=== PATIENT | female | born 1980 | race Caucasian/White ===

== ENCOUNTER 2016-10-09 11:16 | Emergency (ER) | payer MEDICAID ==
[~2016-10-09] VITALS: Ht 160 cm; Wt 95.5 kg
[~2016-10-09 11:16] MED LIST: CEPH-443 PO; FLUO10TA PO; FLUO20CA38 PO; TRAM50TA2 PO; keflex
[2016-10-09 11:21] VITALS: Ht 160 cm; Wt 95.5 kg
[2016-10-09] MEDS ORDERED: KETOROLAC 30 MG INJ IM STA (12:28)
[2016-10-09] MEDS ORDERED: NAPR-260 PO (12:45)
[2016-10-09] MEDS ORDERED: TRAM50TA2 PO (12:45)
[2016-10-09] MEDS ORDERED: CYCL-319 PO (12:45)
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
== END 2016-10-09 12:55 | disposition home or self-care (01) ==
LOC: FTE 11:16
DX: M54.2 Cervicalgia (principal); F17.210 Nicotine dependence, cigarettes, uncomplicated
CPT/HCPCS: 96372; J1885; Z7502

== ENCOUNTER 2017-06-09 13:17 | Emergency (ER) | payer MEDICAID, OTHER ==
[~2017-06-09] VITALS: Ht 160 cm; Wt 96.4 kg
[~2017-06-09 13:17] MED LIST changes: +CYCL-319 PO; +NAPR-260 PO
[2017-06-09 13:20] VITALS: Ht 160 cm; Wt 96.4 kg
[2017-06-09] MEDS ORDERED: ALBUTEROL 0.083% (NEB) 2.5 MG/3 ML AMP HHN STA (14:06)
[2017-06-09] MEDS ORDERED: DEXAMETHASONE 10 MG/ML 1 ML INJ IM ONE (14:30)
[2017-06-09] MEDS ORDERED: IPRATROPIUM (NEB) 0.5 MG/2.5 ML AMP HHN ONE (14:30)
--- NOTE | 2017-06-09 14:50 | RADRPT ---
PROCEDURE: XR Chest CLINICAL INDICATION: Cough TECHNIQUE: PA radiograph COMPARISON: Portable chest radiograph 10/05/2013 FINDINGS: The cardiac silhouette, mediastinum, and pulmonary jamal are unremarkable. Pulmonary vasculature is within normal limits. The visualized pleural surfaces are unremarkable. Left upper lobe micronodule which may be calcifie d is stable in size. The lung parenchyma is otherwise unremarkable. IMPRESSION: Given the differences in the imaging techniques, no significant interval changes are seen including left upper lobe micronodule may be calcified (possible calcified granuloma); it most likely is benig n given its stability in size. RPTAT: TT Physician Parveen Date Time Electronically viewed and signed by Lb Lovelace Physician on 06/09/2017 14:49 JS/
[2017-06-09] MEDS ORDERED: KETOROLAC 60 MG INJ IM STA (15:07)
[2017-06-09] MEDS ORDERED: AMOX500C2 PO (15:11)
[2017-06-09] MEDS ORDERED: OFLO5DRO7 BOTH EARS (15:11)
[2017-06-09] MEDS ORDERED: IBUP-1542 PO (15:12)
--- NOTE | 2017-06-09 17:25 | ERD ---
ER Documentation Chief Complaint Chief Complaint bilateral ear pain and chronic cough HPI 6-year-old female patient with a past medical history of depression presents to the ED complaining of bilateral ear pain that started 1 week ago. States that she has been using hydrogen peroxide to clean her bilateral ears with Q-tips. States that touching the outside of her ears is painful. States that she also has a chronic cough. Reports that she follows up with a supervisor lens generating for her symptoms. Denies any chest pain, shortness of breath, dyspnea on exertion, orthopnea, fever, chills, nausea, vomiting, diarrhea, abdominal pain. ROS All systems reviewed and are negative except as per history of present illness. Medications Home Meds Active Scripts Ibuprofen* (Motrin*) 600 Mg Tab, 600 MG PO Q6, #30 TAB Prov:TANIA BAE PA-C 06/09/17 Ofloxacin Otic (Ofloxacin Otic) 5 Ml Drops, 5 DROP BOTH EARS BID for 10 Days, # 1 BOTTLE Prov:TANIA BAE PA-C 06/09/17 Amoxicillin* (Amoxicillin*) 500 Mg Cap, 500 MG PO TID for 10 Days, CAP Prov:TANIA BAE PA-C 06/09/17 Cyclobenzaprine Hcl* (Cyclobenzaprine Hcl*) 10 Mg Tablet, 10 MG PO TID, #5 TAB Prov:ANNIA DOMINGUEZ PA-C 10/09/16 Naproxen* (Naprosyn*) 500 Mg Tablet, 500 MG PO BID Y for PAIN AND/OR INFLAMMATION, #30 TAB Prov:ANNIA DOMINGUEZ PA-C 10/09/16 Tramadol HCl (Tramadol HCl) 50 Mg Tablet, 50 MG PO Q4 Y for PAIN, #20 TAB Prov:ANNIA DOMINGUEZ PA-C 10/09/16 Tramadol HCl (Tramadol HCl) 50 Mg Tablet, 50 MG PO Q4 Y for PAIN, #15 TAB Prov:KATIE RAY PA-C 02/24/16 Cephalexin* (Keflex*) 500 Mg Capsule, 500 MG PO QID for 7 Days, CAP Prov:KATIE RAY PA-C 02/24/16 Reported Medications [keflex] No Conflict Check 12/31/12 Fluoxetine Hcl* (Prozac*) 10 Mg Tablet, 20 PO DAILY 12/31/12 Fluoxetine Hcl* (Prozac*) 20 Mg Capsule, 20 MG PO DAILY 05/03/12 Allergies Allergies: Coded Allergies: acetaminophen (Verified Allergy, Mild, 12/31/12) codeine (Verified Allergy, Mild, 12/31/12) hydrocodone (Verified Allergy, Mild, 12/31/12) PMhx/Soc History of Surgery: Yes (left ovary adenocarcinoma removed,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 In no acute distress. Head: Atraumatic, normocephalic Eyes: Normal Conjunctiva without injection. No purulent discharge. PERRL. EOMI ENT: Normal external ear. Left ear canal without erythema. Left tympanic membrane pearly jacques without effusion or bulging. Erythema noted in the right ear canal with decreased light reflex of the tympanic membrane. Tenderness to palpation of the bilateral tragus. No tenderness to palpation of the bilateral mastoid. Nasal canal clear with normal turbinates. Moist oropharynx without tonsillar exudates. Non-erythematous pharynx. Uvula midline. No drooling. No trismus. Neck: Full range of motion. No meningismus. No cervical lymphadenopathy. Resp: Clear to auscultation bilaterally. No wheezing, rhonchi, rales, or crackles. No accessory muscle use. No retractions. Cardio: Regular rate and rhythm. No murmurs, rubs or gallops. Abd: Soft, non tender, non distended. Normal bowel sounds. No palpable masses. No rebound tenderness. No guarding. Skin: No petechiae or rashes Back: No midline tenderness. No CVA tenderness. Ext: No cyanosis, or edema. Neur: Awake and alert. Psych: Normal Mood and Affect Results 24 hrs Current Medications Medications (Trade) Dose Ordered Sig/Tori Route PRN Reason Start Time Stop Time Status Last Admin Dose Admin Dexamethasone (Decadron) 10 mg ONCE ONCE IM 06/09/17 14:30 06/09/17 14:31 DC 06/09/17 14:31 Albuterol (Proventil 0.083% (Neb)) 5 mg ONCE STAT HHN 06/09/17 14:06 06/09/17 14:07 Cancel Ipratropium [place] (Atrovent 0.02% (Neb)) 1 mg ONCE ONCE HHN 06/09/17 14:30 06/09/17 14:31 Cancel Ketorolac Tromethamine (Toradol) 60 mg ONCE STAT IM 06/09/17 15:07 06/09/17 15:09 DC 06/09/17 15:23 Procedures/MDM 36-year-old female patient with no significant past medical history presents to the ED complaining of bilateral ear pain and a chronic cough. Patient is afebrile and nontoxic-appearing. Patient has normal vital signs. Patient was treated here in the ED with Toradol and Decadron. She denied wanting a breathing treatment here in the ED. Patient does have inspiratory and expiratory wheezing, therefore a chest x-ray was ordered to further evaluate patient. It did not show any pneumothorax, pleural effusion or pneumonia. Patient lung sounds did improve after receiving Decadron. Low suspicion for acute myocardial infarction, pneumothorax, pneumonia, cardiac tamponade, pulmonary embolism, pleural effusion, AAA, aortic dissection, Boerhaave's syndrome, cardiac dysrhythmias,meningitis, intracranial bleed, seizure, stroke, TIA or other emergent conditions. Patient's physical exam is consistent with otitis media and otitis externa. Patient does not have tenderness to palpation of tragus or mastoid. Low suspicion for mastoiditis. Patient's physical exam include lungs which were clear to auscultation and a normal pulse oximetry. Patient is speaking in full sentences. There is a low suspicion for pneumonia, epiglottitis, croup, viral/strep pharyngitis, sinusitis, peritonsillar abscess, retropharyngeal abscess, meningitis, sepsis, acute abdomen or other emergent conditions. Diagnosis: Otitis externa, Otitis media, Chronic cough Discharge medications: Amoxicillin, Ofloxacin otic drops Follow up with primary care physician in 1-2 days. Instructed patient to return to the ED sooner for any worsening symptoms. Patient's questions were answered. Patient understood and agreed with discharge plan. Patient discharged stable. Departure Diagnosis: Primary Impression: Ear pain Laterality: bilateral Qualified Code: H92.03 - Otalgia of both ears Additional Impression: Cough Condition: Stable Patient Instructions: Cough, Chronic, Uncertain Cause, (Adult), Otitis Media, Abx Tx [Child], External Ear Infection (Adult) Referrals: [facility] YOU HAVE RECEIVED A MEDICAL SCREENING EXAM AND THE RESULTS INDICATE THAT YOU DO NOT HAVE A CONDITION THAT REQUIRES URGENT TREATMENT IN THE EMERGENCY DEPARTMENT. FURTHER EVALUATION AND TREATMENT OF YOUR CONDITION CAN WAIT UNTIL YOU ARE SEEN IN YOUR DOCTORS OFFICE WITHIN THE NEXT 1-2 DAYS. IT IS YOUR RESPONSIBILITY TO MAKE AN APPOINTMENT FOR FOLOW-UP CARE. IF YOU HAVE A PRIMARY DOCTOR --you should call your primary doctor and schedule an appointment IF YOU DO NOT HAVE A PRIMARY DOCTOR YOU CAN CALL OUR PHYSICIAN REFERRAL HOTLINE AT IF YOU CAN NOT AFFORD TO SEE A PHYSICIAN YOU CAN CHOSE FROM THE FOLLOWING [facility] [address] [facility] [address]. [facility] [address] [facility] [address] [facility]. [facility] [address] [facility]. [facility] [address] [facility]. [facility]. [address] [facility]. [facility] YOU HAVE RECEIVED A MEDICAL SCREENING EXAM AND THE RESULTS INDICATE THAT YOU DO NOT HAVE A CONDITION THAT REQUIRES URGENT TREATMENT IN THE EMERGENCY DEPARTMENT. FURTHER EVALUATION AND TREATMENT OF YOUR CONDITION CAN WAIT UNTIL YOU ARE SEEN IN YOUR DOCTORS OFFICE WITHIN THE NEXT 1-2 DAYS. IT IS YOUR RESPONSIBILITY TO MAKE AN APPOINTMENT FOR FOLOW-UP CARE. IF YOU HAVE A PRIMARY DOCTOR --you should call your primary doctor and schedule and appointment IF YOU DO NOT HAVE A PRIMARY DOCTOR YOU CAN CALL OUR PHYSICIAN REFERRAL HOTLINE AT . IF YOU CAN NOT AFFORD TO SEE A PHYSICIAN YOU CAN CHOSE FROM THE FOLLOWING [facility]: [facility] [address] [place] [address] [facility] [address] [place] [address] [facility] [address] [place] [address] [facility] Additional Instructions: Call your primary care doctor TOMORROW for an appointment during the next 2-3 days.See the doctor sooner or return here if your condition worsens before your appointment time. TANIA BAE PA-C Jun 09, 2017 17:25
== END 2017-06-09 15:39 | disposition home or self-care (01) ==
LOC: FTE 13:17
DX: H92.03 Otalgia, bilateral (principal); R05 Cough; F17.210 Nicotine dependence, cigarettes, uncomplicated
CPT/HCPCS: 71010; 96372; J1100; J1885; Z7502

== ENCOUNTER 2017-06-17 08:34 | Emergency (ER) | payer OTHER ==
[~2017-06-17] VITALS: Ht 160 cm; Wt 95.5 kg
[~2017-06-17 08:34] MED LIST changes: +AMOX500C2 PO; +IBUP-1542 PO; +OFLO5DRO7 BOTH EARS
[2017-06-17 08:36] VITALS: Ht 160 cm; Wt 95.5 kg
[2017-06-17] MEDS ORDERED: KETOROLAC 30 MG INJ IM STA (09:04)
--- NOTE | 2017-06-17 09:18 | ERD ---
ER Documentation Chief Complaint Chief Complaint Complains of bilateral ear pain x 4 weeks HPI Patient is a 36-year-old female presents ED for concerns of bilateral ear pain 4 weeks. Patient states that her left ear hurts greater than her right ear. Patient states she has been seen here first similar pain about a week ago. Patient states she was given amoxicillin and antibiotic eardrops. Patient states she followed with her primary care physician who discontinued these antibiotics and started the patient on Levaquin, Medrol dosepak and neomycin eardrops. Patient states despite taking the medication she continues to have pain. Patient does report pain to her left jaw. She states that she has pain with opening closing her mouth. Patient reports to numerous dental extractions in the past. Patient also reports fevers at home. Patient states yesterday she had a temperature 101 Fahrenheit. Patient last took Tylenol last night. Patient denies taking any antipyretics this morning. Patient denies any nausea , vomiting, chest pain, shortness of breath, loss of consciousness. Patient has not seen an ENT specialist or dentist. ROS All systems reviewed and are negative except as per history of present illness. Medications Home Meds Active Scripts Ibuprofen* (Motrin*) 600 Mg Tab, 600 MG PO Q6, #30 TAB Prov:CHIKIS BEST PA-C 06/17/17 Ibuprofen* (Motrin*) 600 Mg Tab, 600 MG PO Q6, #30 TAB Prov:TANIA BAE PA-C 06/09/17 Ofloxacin Otic (Ofloxacin Otic) 5 Ml Drops, 5 DROP BOTH EARS BID for 10 Days, # 1 BOTTLE Prov:TANIA BAE PA-C 06/09/17 Amoxicillin* (Amoxicillin*) 500 Mg Cap, 500 MG PO TID for 10 Days, CAP Prov:TANIA BAE PA-C 06/09/17 Cyclobenzaprine Hcl* (Cyclobenzaprine Hcl*) 10 Mg Tablet, 10 MG PO TID, #5 TAB Prov:ANNIA DOMINGUEZ PA-C 10/09/16 Naproxen* (Naprosyn*) 500 Mg Tablet, 500 MG PO BID Y for PAIN AND/OR INFLAMMATION, #30 TAB Prov:ANNIA DOMINGUEZ PA-C 10/09/16 Tramadol HCl (Tramadol HCl) 50 Mg Tablet, 50 MG PO Q4 Y for PAIN, #20 TAB Prov:ANNIA DOMINGUEZ PA-C 10/09/16 Tramadol HCl (Tramadol HCl) 50 Mg Tablet, 50 MG PO Q4 Y for PAIN, #15 TAB Prov:KATIE RAY PA-C 02/24/16 Cephalexin* (Keflex*) 500 Mg Capsule, 500 MG PO QID for 7 Days, CAP Prov:KATIE RAY PA-C 02/24/16 Reported Medications [keflex] No Conflict Check 12/31/12 Fluoxetine Hcl* (Prozac*) 10 Mg Tablet, 20 PO DAILY 12/31/12 Fluoxetine Hcl* (Prozac*) 20 Mg Capsule, 20 MG PO DAILY 05/03/12 Allergies Allergies: Coded Allergies: acetaminophen (Verified Allergy, Mild, 06/17/17) codeine (Verified Allergy, Mild, 12/31/12) hydrocodone (Verified Allergy, Mild, 12/31/12) PMhx/Soc History of Surgery: Yes (left ovary adenocarcinoma removed,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 Appears in no acute distress. HEAD: Normocephalic, atraumatic. No deformities or ecchymosis. EYE: Pupils equal, round, and reactive to light. EOMs intact. No conjunctival erythema. No eye discharge. ENT: External ear without any masses or tenderness. Auditory canals clear bilaterally. TM visualized bilaterally, non-erythematous, non-bulging. Tender to palpation of bilateral mastoid process, no erythema or swelling noted. Nasal mucosa pink with no discharge. Oropharynx is pink without any tonsillar erythema or exudates. No uvula deviation. No kissing tonsils. Numerous previous tooth extractions noted. No trismus. TTP of L TMJ. Patient elicits pain with opening and closing mouth. NECK: Supple. No meningismus. Normal ROM of the neck. LUNG: Clear to auscultation bilaterally. No rhonchi, wheezing, rales or coarse breath sounds. HEART: Regular rate and rhythm. No murmurs, rubs or gallops. EXTREMITIES: Equal pulses bilaterally. No peripheral clubbing, cyanosis or edema. No unilateral leg swelling. NEUROLOGIC: Alert and oriented to person, place and time. Moving all four extremities. 5/5 strength in all extremities. Normal speech. Steady gait. SKIN: Normal color. Warm and dry. No rashes or lesions. Result Diagram: 06/17/1793706/17/1738 Results 24 hrs Laboratory Tests Test 06/17/17 09:38 White Blood Count 11.110^3/ul Red Blood Count 5.1110^6/ul Hemoglobin 16.0g/dl Hematocrit 46.3% Mean Corpuscular Volume 90.6fl Mean Corpuscular Hemoglobin 31.3pg Mean Corpuscular Hemoglobin Concent 34.6g/dl Red Cell Distribution Width 12.4% Platelet Count 04263^3/UL Mean Platelet Volume 9.7fl Neutrophils % 69.4% Lymphocytes % 24.8% Monocytes % 4.2% Eosinophils % 0.7% Basophils % 0.4% Nucleated Red Blood Cells % 0.0/100WBC Neutrophils # 7.710^3/ul Lymphocytes # 2.810^3/ul Monocytes # 0.510^3/ul Eosinophils # 0.110^3/ul Basophils # 0.010^3/ul Nucleated Red Blood Cells # 0.010^3/ul Sodium Level 143mmol/L Potassium Level 4.2mmol/L Chloride Level 105mmol/L Carbon Dioxide Level 26mmol/L Anion Gap 16 Blood Urea Nitrogen 14mg/dl Creatinine 0.75mg/dl Glucose Level 93mg/dl Calcium Level 9.6mg/dl Current Medications Medications (Trade) Dose Ordered Sig/Tori Route PRN Reason Start Time Stop Time Status Last Admin Dose Admin Ketorolac Tromethamine (Toradol) 30 mg ONCE STAT IM 06/17/17 09:04 06/17/17 09:06 DC 06/17/17 09:33 Procedures/MDM ED COURSE: The patient was stable throughout ED course. I kept the patient and/or family informed of laboratory and diagnostic imaging results throughout the ED course. DIAGNOSTIC IMAGING: Read by radiologist. Patient: BLAIR SIMPSON : 1980 Age: 36 Sex: F MR #: [id number] DOS: 06/17/17 0904 Ordering MD: CHIKIS BEST PA-C Location: [facility] Room/Bed: PROCEDURE: CT scan facial bones CLINICAL INDICATION: Bilateral ear pain. Left jaw pain. TECHNIQUE: CT scan of the face was performed on the a high-resolution multidetector CT scanner with multiple contiguous axial images obtained through the face. Coronal and sagittal reformatted images were obtained from the axial source images. One or more the following does reduction techniques were utilized : Automated exposure control, adjustment of the mA/ or kV according to patient' s size, or use of iterative reconstruction technique. Exam CTDI = 29.51 mGy and the DLP = 568.94 mGy-cm. DICOM images are available. COMPARISON: None available. FINDINGS: The study is suboptimal for evaluation of infection or inflammation considering absence of intravenous contrast. No acute fracture or dislocation is seen. No cortical osseous erosion is noted. No significant soft tissue swelling is noted. The orbital globes are unremarkable. Nasal septum is intact. Paranasal sinuses demonstrate trace scattered mucosal thickening. Several missing teeth are noted. There is prominent right paramedian retrocerebellar CSF space which may represent austin cisterna magna versus arachnoid cyst. IMPRESSION: Suboptimal study considering absence of intravenous contrast. 1. No acute facial fracture or dislocation. No significant facial soft tissue swelling. RPTAT: UU .Eliud Maynard MD, MD Date Time Electronically viewed and signed by .Eliud Maynard MD, MD on 06/17/2017 09: 40 .N/ CC: CHIKIS BEST PA-C PROCEDURES: None. MEDICATIONS GIVEN: Toradol IM Patient tolerated medication well with no adverse reactions. MEDICAL DECISION MAKING: Patient is a 36-year-old female presents ED for bilateral ear pain 4 weeks. Patient did report fevers at home. Patient does report pain with opening and closing her jaw. Patient also has tried numerous antibiotic eardrops and p.o. antibiotics with no relief of symptoms. Patient has not seen an ENT specialist or dentist. Vital signs were reviewed. Patient was afebrile. Patient was not hypoxic. Blood work was also obtained. CBC showed no evidence of severe anemia. Patient's WBC count was noted to be 11.1. BMP showed no evidence of electrolyte abnormalities, severe acidosis, alkalosis, renal failure. Given the patient's ongoing pain, I did order a CT scan of the patient's facial bones. Due to CT scan limitations of contrast injector not being available at this time, non contrast CT scan of the patient's facial bones was obtained. CT scan showed Suboptimal study considering absence of intravenous contrast. No acute facial fracture or dislocation. No significant facial soft tissue swelling. At this time, patient's presentation is most consistent with ear pain of unknown etiology. Patient's symptoms may be related to TMJ. Patient was advised to follow-up with her dentist. Patient was also advised to follow- up with an ENT specialist. Upon discharge patient did verbalize to me that she contacted her primary care physician who did already submit a referral to an ENT specialist. Referral pending. Low suspicion for cerumen impaction, tympanic membrane perforation, acute otitis media, mastoiditis, osteomyelitis. Patient was nontoxic, [id number] prior to discharge. PRESCRIPTIONS: Ibuprofen DISCHARGE: At this time, patient is stable for discharge and outpatient management. I have instructed the patient to follow-up with his/her primary care physician in 1-2 days. I have discussed with the patient the possibility of needing to see a specialist for further workup and diagnostic studies if the pain persists. I have instructed the patient to promptly return to the ER at any time for any new or worsening symptoms including increased pain, fever, swelling, discharge or hearing loss. The patient and/or family expressed understanding of and agreement with this plan. All questions were answered. Home care instructions were provided. Disclaimer: Inadvertent spelling and grammatical errors are likely due to EHR/ dictation software use and do not reflect on the overall quality of patient care. Also, please note that the electronic time recorded on this note does not necessarily reflect the actual time of the patient encounter. Departure Diagnosis: Primary Impression: Left ear pain Additional Impression: Jaw pain Condition: Stable Patient Instructions: Common Middle Ear Problems, Tmj Syndrome Referrals: DANILO SO MD, ALESSANDRO MALDONADO,JOANNA MCMANUS,CLEOPATRA SCHMITT,SANA SMITH M.D., MD,DIANNE GRIFFIN,SANA MARRERO [facility] YOU HAVE RECEIVED A MEDICAL SCREENING EXAM AND THE RESULTS INDICATE THAT YOU DO NOT HAVE A CONDITION THAT REQUIRES URGENT TREATMENT IN THE EMERGENCY DEPARTMENT. FURTHER EVALUATION AND TREATMENT OF YOUR CONDITION CAN WAIT UNTIL YOU ARE SEEN IN YOUR DOCTORS OFFICE WITHIN THE NEXT 1-2 DAYS. IT IS YOUR RESPONSIBILITY TO MAKE AN APPOINTMENT FOR FOLOW-UP CARE. IF YOU HAVE A PRIMARY DOCTOR --you should call your primary doctor and schedule an appointment IF YOU DO NOT HAVE A PRIMARY DOCTOR YOU CAN CALL OUR PHYSICIAN REFERRAL HOTLINE AT IF YOU CAN NOT AFFORD TO SEE A PHYSICIAN YOU CAN CHOSE FROM THE FOLLOWING [facility] [address] [facility] [address] [employer] [facility] [address] [facility] [address] [facility] [address] [facility] [facility] [address] [facility] [facility] YOU HAVE RECEIVED A MEDICAL SCREENING EXAM AND THE RESULTS INDICATE THAT YOU DO NOT HAVE A CONDITION THAT REQUIRES URGENT TREATMENT IN THE EMERGENCY DEPARTMENT. FURTHER EVALUATION AND TREATMENT OF YOUR CONDITION CAN WAIT UNTIL YOU ARE SEEN IN YOUR DOCTORS OFFICE WITHIN THE NEXT 1-2 DAYS. IT IS YOUR RESPONSIBILITY TO MAKE AN APPOINTMENT FOR FOLOW-UP CARE. IF YOU HAVE A PRIMARY DOCTOR --you should call your primary doctor and schedule and appointment IF YOU DO NOT HAVE A PRIMARY DOCTOR YOU CAN CALL OUR PHYSICIAN REFERRAL HOTLINE AT . IF YOU CAN NOT AFFORD TO SEE A PHYSICIAN YOU CAN CHOSE FROM THE FOLLOWING [facility] INSTITUTIONS: [facility] [address] [place] [address] [facility] [address] [place] [address] [facility] [place] [address] [place] [address] [facility] DENTIST ([facility] walk in clinic) Additional Instructions: Follow-up with an ENT specialist. Follow-up with a dentist. Call your primary care doctor TOMORROW for an appointment during the next 1-2 days.See the doctor sooner or return here if your condition worsens before your appointment time. CHIKIS BEST PA-C Jun 17, 2017 09:18
--- NOTE | 2017-06-17 09:41 | RADRPT ---
PROCEDURE: CT scan facial bones CLINICAL INDICATION: Bilateral ear pain. Left jaw pain. TECHNIQUE: CT scan of the face was performed on the a high-resolution multidetector CT scanner wit h multiple contiguous axial images obtained through the face. Coronal and sagittal reformatted imag es were obtained from the axial source images. One or more the following does reduction techniques w ere utilized: Automated exposure control, adjustment of the mA/ or kV according to patient's size, o r use of iterative reconstruction technique. Exam CTDI = 29.51 mGy and the DLP = 568.94 mGy-cm. DICOM images are available. COMPARISON: None available. FINDINGS: The study is suboptimal for evaluation of infection or inflammation considering absence of intraveno us contrast. No acute fracture or dislocation is seen. No cortical osseous erosion is noted. No significant soft tissue swelling is noted. The orbital globes are unremarkable. Nasal septum is intact. Paranasal s inuses demonstrate trace scattered mucosal thickening. Several missing teeth are noted. There is prominent right paramedian retrocerebellar CSF space which may represent austin cisterna magn a versus arachnoid cyst. IMPRESSION: Suboptimal study considering absence of intravenous contrast. 1. No acute facial fracture or dislocation. No significant facial soft tissue swelling. RPTAT: UU .Eliud Maynard MD, Date Time Electronically viewed and signed by .Eliud Maynard MD, MD on 06/17/2017 09:40 .N/
[2017-06-17 10:21] LABS: BASOPHILS % 0.4 % (0.0-2.0); EOSINOPHILS # 0.1 10^3/ul (0.0-0.5); EOSINOPHILS % 0.7 % (0.0-7.0); HEMATOCRIT 46.3 % (37.0-47.0); LYMPHOCYTES # 2.8 10^3/ul (0.8-2.9); LYMPHOCYTES % 24.8 % (15.0-51.0); MEAN CORPUSCULAR HEMOGLOBIN 31.3 pg (29.0-33.0); MEAN CORPUSCULAR HGB CONC 34.6 g/dl (32.0-37.0); MEAN CORPUSCULAR VOLUME 90.6 fl (82.0-101.0); MEAN PLATELET VOLUME 9.7 fl (7.4-10.4); MONOCYTE # 0.5 10^3/ul (0.3-0.9); MONOCYTES % 4.2 % (0.0-11.0); NEUTROPHIL # 7.7 10^3/ul (1.6-7.5); NEUTROPHILS % 69.4 % (39.0-77.0); PLATELET COUNT 330 10^3/UL (140-415); RED BLOOD COUNT 5.11 10^6/ul (4.20-5.40); RED CELL DISTRIBUTION WIDTH 12.4 % (11.5-14.5); WHITE BLOOD COUNT 11.1 10^3/ul (4.8-10.8)
[2017-06-17 10:53] LABS: CALCIUM 9.6 mg/dl (8.4-10.2); CREATININE 0.75 mg/dl (0.44-1.00); POTASSIUM 4.2 mmol/L (3.5-5.1)
[2017-06-17] MEDS ORDERED: IBUP-1542 PO (11:30)
== END 2017-06-17 12:43 | disposition home or self-care (01) ==
LOC: FTE 08:34
DX: H92.02 Otalgia, left ear (principal); R68.84 Jaw pain; F17.210 Nicotine dependence, cigarettes, uncomplicated
CPT/HCPCS: 70486; 80048; 85025; 96372; J1885; Z7502

== ENCOUNTER 2018-02-13 10:59 | Emergency (ER) | END 2018-02-13 11:56 | disposition home or self-care (01) ==

== ENCOUNTER 2018-04-08 19:10 | Emergency (ER) | END 2018-04-09 01:13 | disposition home or self-care (01) ==